=== PATIENT | male | born 1975 | race Caucasian/White ===

== ENCOUNTER 2023-09-06 23:44 | Emergency (ER) | payer SELFPAY ==
[~2023-09-06] VITALS: Ht 180.3 cm; Wt 83.8 kg
[2023-09-06 23:48] VITALS: BP 170/108; PULSE 95; RESP 16; TEMP 98.2; O2SAT 96
== END 2023-09-07 04:36 | disposition left against medical advice (07) ==
LOC: ER 23:47
DX: M25.571 Pain in right ankle and joints of right foot (principal); Z53.21 Procedure and treatment not carried out due to patient leaving prior to being seen by health care provider
CPT/HCPCS: 99281